=== PATIENT | male | born 1950 | race Caucasian/White ===

== ENCOUNTER 2025-06-07 09:42 | Emergency (ER) | payer OTHER ==
[2025-06-07] MEDS ORDERED: LevoFLOXacin 750 mg/D5W 150 ml Premix Bag ONE (10:01)
[2025-06-07] MEDS ORDERED: Magnesium 2 GM/50 ML BAG (IN WATER) ONE (10:02)
[2025-06-07 10:21] LABS: #Basophils 0.05 10x3/uL (0.0-0.2); #Eosinophils 0.42 10x3/uL (0.0-0.5); #Monocytes 0.58 10x3/uL (0.0-1.1); #Neutrophils 6.95 10x3/uL (1.5-8.4); %Basophils 0.6 % (0.0-2.0); %Eosinophils 4.9 % (0.0-6.0); %Lymphocytes 7.0 % (18.0-47.0); %Monocytes 6.7 % (0.0-10.0); %Neutrophils 80.5 % (40.0-75.0); Hematocrit 33.7 % (38.8-50.0); Hemoglobin 10.6 g/dL (13.5-17.5); Mean Corpuscular Hemoglobin 27.8 pg (27.0-33.0); Mean Corpuscular Volume 88.5 fL (81.2-95.1); Platelet Count 225 10x3/uL (150-450); Red Blood Cell (RBC) Count 3.81 10x6/uL (4.32-5.72); White Blood Cell (WBC) Count 8.63 10x3/uL (3.5-10.5)
[2025-06-07 10:35] LABS: ALT (SGPT) 10 U/L (Less than 45); AST (SGOT) 14 U/L (11-34); Albumin 3.4 g/dL (3.1-4.5); Alkaline Phosphatase 61 U/L (40-110); Anion Gap 14 mmol/L (10-20); BUN (Urea Nitrogen) 20 mg/dL (8.4-25.7); Bilirubin, Total 1.1 mg/dL (0.3-1.2); Calc. Creatinine Clearance 0 mL/min (70-130); Calcium 8.7 mg/dL (7.8-10.44); Carbon Dioxide 18 mmol/L (23-31); Chloride 111 mmol/L (98-107); Globulin 3.0 g/dL (2.4-3.5); Glucose 102 mg/dL (83-110); Potassium 4.3 mmol/L (3.5-5.1); Sodium 139 mmol/L (136-145)
[2025-06-07 10:42] LABS: Troponin I 0.011 ng/mL (< 0.028)
== END 2025-06-07 13:35 ==
LOC: CSHERS 09:42 → EEVIPCON 09:42 → CSHERS 13:35
DX: J44.1 Chronic obstructive pulmonary disease with (acute) exacerbation (principal); I50.9 Heart failure, unspecified
CPT/HCPCS: 36415; 71045; 80053; 83605; 83880; 84484; 85025; 87040; 93005; 94640; 96374; 96375; J1956; J3475; J7620

== ENCOUNTER 2025-07-21 10:39 | Inpatient (IN) | payer OTHER ==
[2025-07-21] MEDS ORDERED: Albuterol 2.5 MG (3 mL) NEB ONE ×2 (11:52→15:09)
[2025-07-21 12:29] LABS: Actual Bicarbonate (HCO3v) 21.0 mEq/L (22-28); Analyzer IN Cardio CS ER; Base Excess -2.4 mEq/L (-2 - +2); Calcium, Ionized (venous) 0.97 mmol/L (1.16-1.32); Chloride (VBG) 108 mmol/L (98-106); Critical Notified By: S. Buerger, RRT; Hematocrit-VBG 39 % (42.0-52.0); Hemoglobin (Hb) 13.4 g/dL (12.6-17.4); Potassium (VBG) 4.58 mmol/L (3.70-5.30); Puncture Site Other Site; RapidComm Collect By RN; Sodium 138 mmol/L (133-146)
[2025-07-21 12:47] LABS: #Basophils 0.04 10x3/uL (0.0-0.2); #Eosinophils 0.54 10x3/uL (0.0-0.5); #Monocytes 0.92 10x3/uL (0.0-1.1); #Neutrophils 9.40 10x3/uL (1.5-8.4); %Basophils 0.3 % (0.0-2.0); %Eosinophils 4.6 % (0.0-6.0); %Lymphocytes 6.3 % (18.0-47.0); %Monocytes 7.9 % (0.0-10.0); %Neutrophils 80.5 % (40.0-75.0); Hematocrit 37.4 % (38.8-50.0); Hemoglobin 11.8 g/dL (13.5-17.5); Mean Corpuscular Hemoglobin 28.2 pg (27.0-33.0); Mean Corpuscular Volume 89.3 fL (81.2-95.1); Platelet Count 274 10x3/uL (150-450); Red Blood Cell (RBC) Count 4.19 10x6/uL (4.32-5.72); White Blood Cell (WBC) Count 11.68 10x3/uL (3.5-10.5)
[2025-07-21 12:57] LABS: ALT (SGPT) 11 U/L (Less than 45); AST (SGOT) 14 U/L (11-34); Albumin 3.8 g/dL (3.1-4.5); Alkaline Phosphatase 61 U/L (40-110); Anion Gap 12 mmol/L (10-20); BUN (Urea Nitrogen) 19 mg/dL (8.4-25.7); Bilirubin, Total 0.8 mg/dL (0.3-1.2); Calc. Creatinine Clearance 0 mL/min (70-130); Calcium 8.9 mg/dL (7.8-10.44); Carbon Dioxide 25 mmol/L (23-31); Chloride 109 mmol/L (98-107); Globulin 2.6 g/dL (2.4-3.5); Glucose 111 mg/dL (83-110); Potassium 4.8 mmol/L (3.5-5.1); Sodium 141 mmol/L (136-145)
[2025-07-21 13:03] LABS: Troponin I Less than 0.010 ng/mL (< 0.028)
[2025-07-21] MEDS ORDERED: Magnesium 2 GM/50 ML BAG (IN WATER) ONE (16:26)
[2025-07-21] MEDS: Mometasone 200 MCG/Formoterol 5 MCG 60 PUFF INHALER INH SCH (21:00)
[2025-07-21] MEDS ORDERED: Famotidine/PF 20 mg/2ml Vial ONE (21:20)
[2025-07-21] MEDS ORDERED: Azithromycin 500 MG VIAL ONE (21:20)
[2025-07-21] MEDS: Azithromycin 500 MG in Sodium Chloride 0.9% 250 ML 250 ML IVPB SCH (21:32)
[2025-07-21] MEDS: Famotidine/PF 20 mg/2ml Vial SLOW IVP SCH (21:32)
[2025-07-21] MEDS ORDERED: cefTRIAXone (ROCEPHIN) 2 GM VIAL ONE (23:21)
[2025-07-21] MEDS: cefTRIAXone\\ROCEPHIN 2 GM in Sodium Chloride 0.9% 100 ML IVPB SCH (23:27)
[2025-07-22 03:56] LABS: #Basophils Less than 0.03 10x3/uL (0.0-0.2); #Eosinophils Less than 0.03 10x3/uL (0.0-0.5); #Monocytes 0.07 10x3/uL (0.0-1.1); #Neutrophils 6.31 10x3/uL (1.5-8.4); %Basophils 0.1 % (0.0-2.0); %Eosinophils 0.0 % (0.0-6.0); %Lymphocytes 5.2 % (18.0-47.0); %Monocytes 1.0 % (0.0-10.0); %Neutrophils 93.4 % (40.0-75.0); Hematocrit 34.0 % (38.8-50.0); Hemoglobin 10.6 g/dL (13.5-17.5); Mean Corpuscular Hemoglobin 27.4 pg (27.0-33.0); Mean Corpuscular Volume 87.9 fL (81.2-95.1); Platelet Count 167 10x3/uL (150-450); Red Blood Cell (RBC) Count 3.87 10x6/uL (4.32-5.72); White Blood Cell (WBC) Count 6.76 10x3/uL (3.5-10.5)
[2025-07-22 04:09] LABS: Anion Gap 12 mmol/L (10-20); BUN (Urea Nitrogen) 18 mg/dL (8.4-25.7); Calc. Creatinine Clearance 0 mL/min (70-130); Calcium 9.1 mg/dL (7.8-10.44); Carbon Dioxide 23 mmol/L (23-31); Chloride 106 mmol/L (98-107); Glucose 166 mg/dL (83-110); Potassium 4.7 mmol/L (3.5-5.1); Sodium 136 mmol/L (136-145)
[2025-07-22 04:17] LABS: Troponin I Less than 0.010 ng/mL (< 0.028)
[2025-07-22] MEDS: Mometasone 200 MCG/Formoterol 5 MCG 60 PUFF INHALER INH SCH (06:22)
[2025-07-22] MEDS ORDERED: Famotidine/PF 20 mg/2ml Vial ONE (09:58)
[2025-07-22] MEDS: Azithromycin 250 MG TAB PO SCH (20:58)
[2025-07-23 03:32] LABS: #Basophils Less than 0.03 10x3/uL (0.0-0.2); #Eosinophils Less than 0.03 10x3/uL (0.0-0.5); #Monocytes 0.22 10x3/uL (0.0-1.1); #Neutrophils 8.28 10x3/uL (1.5-8.4); %Basophils 0.0 % (0.0-2.0); %Eosinophils 0.0 % (0.0-6.0); %Lymphocytes 4.6 % (18.0-47.0); %Monocytes 2.5 % (0.0-10.0); %Neutrophils 92.6 % (40.0-75.0); Hematocrit 32.0 % (38.8-50.0); Hemoglobin 10.3 g/dL (13.5-17.5); Mean Corpuscular Hemoglobin 27.9 pg (27.0-33.0); Mean Corpuscular Volume 86.7 fL (81.2-95.1); Platelet Count 204 10x3/uL (150-450); Red Blood Cell (RBC) Count 3.69 10x6/uL (4.32-5.72); White Blood Cell (WBC) Count 8.94 10x3/uL (3.5-10.5)
[2025-07-23 03:48] LABS: Anion Gap 12 mmol/L (10-20); BUN (Urea Nitrogen) 26 mg/dL (8.4-25.7); Calc. Creatinine Clearance 105 mL/min (70-130); Calcium 9.0 mg/dL (7.8-10.44); Carbon Dioxide 23 mmol/L (23-31); Chloride 110 mmol/L (98-107); Glucose 137 mg/dL (83-110); Potassium 5.1 mmol/L (3.5-5.1); Sodium 140 mmol/L (136-145)
[2025-07-23 06:16] VITALS: BMI 34.9
[2025-07-23] MEDS ORDERED: MINERAL OIL TOP SCH (09:15)
[2025-07-23] MEDS ORDERED: TOLNAFTATE TOP SCH (09:15)
[2025-07-23] MEDS ORDERED: LANOLIN TOP SCH (09:15)
[2025-07-23] MEDS ORDERED: Ventolin HFA Inhaler 60 PUFF INHALER INH PRN (09:30)
[2025-07-23] MEDS: Furosemide 20 MG TAB PO SCH (10:10)
[2025-07-23] MEDS ORDERED: Albuterol 1.25 MG (3 mL) NEB NEB PRN (12:20)
[2025-07-23] MEDS: Pantoprazole 40 MG DR.TAB PO SCH (16:46)
[2025-07-23] MEDS: Acetaminophen 500 MG TAB PO PRN (16:46)
[2025-07-23] MEDS: DULoxetine 30 MG CAP PO SCH (22:07)
[2025-07-24 03:31] LABS: #Basophils Less than 0.03 10x3/uL (0.0-0.2); #Eosinophils Less than 0.03 10x3/uL (0.0-0.5); #Monocytes 0.34 10x3/uL (0.0-1.1); #Neutrophils 8.61 10x3/uL (1.5-8.4); %Basophils 0.0 % (0.0-2.0); %Eosinophils 0.0 % (0.0-6.0); %Lymphocytes 3.2 % (18.0-47.0); %Monocytes 3.7 % (0.0-10.0); %Neutrophils 92.7 % (40.0-75.0); Hematocrit 31.1 % (38.8-50.0); Hemoglobin 10.1 g/dL (13.5-17.5); Mean Corpuscular Hemoglobin 28.3 pg (27.0-33.0); Mean Corpuscular Volume 87.1 fL (81.2-95.1); Platelet Count 188 10x3/uL (150-450); Red Blood Cell (RBC) Count 3.57 10x6/uL (4.32-5.72); White Blood Cell (WBC) Count 9.29 10x3/uL (3.5-10.5)
[2025-07-24 03:44] LABS: Anion Gap 14 mmol/L (10-20); BUN (Urea Nitrogen) 30 mg/dL (8.4-25.7); Calc. Creatinine Clearance 95 mL/min (70-130); Calcium 8.6 mg/dL (7.8-10.44); Carbon Dioxide 21 mmol/L (23-31); Chloride 110 mmol/L (98-107); Glucose 133 mg/dL (83-110); Sodium 140 mmol/L (136-145)
[2025-07-24 03:46] LABS: Potassium 4.8 mmol/L (3.5-5.1)
[2025-07-24] MEDS: Metoprolol Succinate XL 50 MG ER.TAB PO SCH (07:51)
[2025-07-24] MEDS: Pantoprazole 40 MG DR.TAB PO SCH (07:51)
[2025-07-24] MEDS: Furosemide 20 MG TAB PO SCH (07:51)
[2025-07-24] MEDS ORDERED: Pantoprazole 40 MG DR.TAB PO SCH (09:00)
[2025-07-24] MEDS: predniSONE 20 MG TAB PO SCH (13:00)
[2025-07-25 03:44] LABS: #Basophils Less than 0.03 10x3/uL (0.0-0.2); #Eosinophils Less than 0.03 10x3/uL (0.0-0.5); #Monocytes 0.59 10x3/uL (0.0-1.1); #Neutrophils 8.11 10x3/uL (1.5-8.4); %Basophils 0.1 % (0.0-2.0); %Eosinophils 0.0 % (0.0-6.0); %Lymphocytes 6.5 % (18.0-47.0); %Monocytes 6.3 % (0.0-10.0); %Neutrophils 86.2 % (40.0-75.0); Hematocrit 35.4 % (38.8-50.0); Hemoglobin 11.2 g/dL (13.5-17.5); Mean Corpuscular Hemoglobin 28.1 pg (27.0-33.0); Mean Corpuscular Volume 88.7 fL (81.2-95.1); Platelet Count 277 10x3/uL (150-450); Red Blood Cell (RBC) Count 3.99 10x6/uL (4.32-5.72); White Blood Cell (WBC) Count 9.40 10x3/uL (3.5-10.5)
[2025-07-25 03:57] LABS: Anion Gap 12 mmol/L (10-20); BUN (Urea Nitrogen) 29 mg/dL (8.4-25.7); Calc. Creatinine Clearance 107 mL/min (70-130); Calcium 8.9 mg/dL (7.8-10.44); Carbon Dioxide 27 mmol/L (23-31); Chloride 108 mmol/L (98-107); Glucose 110 mg/dL (83-110); Potassium 4.8 mmol/L (3.5-5.1); Sodium 142 mmol/L (136-145)
[2025-07-25] MEDS: predniSONE 20 MG TAB PO SCH (08:47)
[2025-07-25 09:50] VITALS: BP 121/107; TEMP 98.4
== END 2025-07-25 10:57 | disposition home or self-care (01) | DRG 189 ==
LOC: EEVIPCON 10:39 → CSHERS 10:39 → CSHERHOLD 17:12 → CSHICU 07-22 15:10
PROVIDERS: ADMIT Hospitalist; ATTEND Hospitalist
PROC: 3E03329 Introduction of Other Anti-infective into Peripheral Vein, Percutaneous Approach (ICD-10-PCS; principal; 2025-07-21)
PROC: 5A09357 Assistance with Respiratory Ventilation, Less than 24 Consecutive Hours, Continuous Positive Airway Pressure (ICD-10-PCS; 2025-07-21)
DX: J96.01 Acute respiratory failure with hypoxia (principal); J44.1 Chronic obstructive pulmonary disease with (acute) exacerbation; I73.9 Peripheral vascular disease, unspecified; I25.10 Atherosclerotic heart disease of native coronary artery without angina pectoris; Z98.890 Other specified postprocedural states; Z79.01 Long term (current) use of anticoagulants; Z88.8 Allergy status to other drugs, medicaments and biological substances; Z90.49 Acquired absence of other specified parts of digestive tract; Z99.81 Dependence on supplemental oxygen; Z79.52 Long term (current) use of systemic steroids; Z79.2 Long term (current) use of antibiotics
CPT/HCPCS: 36415; 71045; 80048; 80053; 82805; 83605; 83880; 84484; 85025; 87428; 93005; 94640; 94644; 94645; 94660; 94664; 94760; 94762; 96374; 96375; J0456; J0696; J1308; J2919; J3475; J7050; J7512; J7611